=== PATIENT | female | born 1935 | race Caucasian/White ===

== ENCOUNTER 2021-10-07 17:28 | Inpatient (IN) ==
[2021-10-07] MEDS ORDERED: Acetaminophen 325 MG TABLET PO PRN (18:07)
[2021-10-07] MEDS ORDERED: Ondansetron 4 MG/2 ML VIAL IVP PRN (18:07)
[2021-10-07] MEDS ORDERED: Naloxone 0.4 MG/ML INJ IVP PRN (18:07)
[2021-10-07] MEDS ORDERED: Diclofenac Sodium [Voltaren] 100 GM Gel..Gram. TP PRN (21:54)
[2021-10-08] MEDS ORDERED: *HR* Enoxaparin 40 MG/0.4 ML SYRINGE SQ SCH (06:00)
[2021-10-08 07:18] LABS: Hematocrit 29.2 % (35.3-44.9); Hemoglobin 9.6 g/dL (11.5-15.4); Mean Corpuscular HGB Conc 32.9 g/dL (31.6-35.5); Mean Corpuscular Hemoglobin 29.4 pg (28.0-33.3); Mean Corpuscular Volume 89.3 fL (83.0-100.0); Mean Platelet Volume 8.5 fL (9.4-12.4); Platelet Count 239 K/mcL (140-400); Red Blood Count 3.27 M/mcL (3.82-4.97); Red Cell Distribution Width 13.5 % (11.5-14.5); White Blood Count 5.3 K/mcL (4.3-11.1)
[2021-10-08 07:46] LABS: Calcium 9.4 mg/dL (8.6-10.3); Potassium 3.9 mEq/L (3.5-5.1)
[2021-10-08] MEDS ORDERED: [UNRECOGNIZED DRUG - OTHER] SL SCH (09:00)
[2021-10-08] MEDS ORDERED: CYANOCOBALAMIN SL SCH (09:00)
[2021-10-08] MEDS: Cholecalciferol (D-3) 1,000 UNIT (25MCG) TABLET PO SCH (10:27)
[2021-10-08] MEDS: amLODIPine 5 MG TABLET PO SCH (10:27)
[2021-10-08] MEDS: Ezetimibe [Zetia] 10 MG Tablet PO SCH (10:31)
[2021-10-08] MEDS ORDERED: *HR* HYDROcodone/Acet 5/325 mg TABLET PO PRN (11:51)
[2021-10-09] MEDS: *HR* Heparin 5,000 UNIT/ML VIAL SQ SCH ×2 (05:55→18:26)
[2021-10-09] MEDS: Cholecalciferol (D-3) 1,000 UNIT (25MCG) TABLET PO SCH (08:55)
[2021-10-09] MEDS: amLODIPine 5 MG TABLET PO SCH (08:55)
[2021-10-09] MEDS: Ezetimibe [Zetia] 10 MG Tablet PO SCH (08:55)
[2021-10-10] MEDS: *HR* Heparin 5,000 UNIT/ML VIAL SQ SCH (05:56)
[2021-10-10 06:23] VITALS: BP 175/65; PULSE 62; RESP 19; TEMP 98.1; O2SAT 98
[2021-10-10] MEDS: Ezetimibe [Zetia] 10 MG Tablet PO SCH (08:12)
[2021-10-10] MEDS: amLODIPine 5 MG TABLET PO SCH (08:12)
[2021-10-10] MEDS: Cholecalciferol (D-3) 1,000 UNIT (25MCG) TABLET PO SCH (08:12)
== END 2021-10-10 14:37 | disposition other institution (70) | DRG 554 ==
LOC: PREOBSVTOIN 18:19 → INPPIK 21:45
PROVIDERS: ADMIT Family Medicine; ATTEND Family Medicine

== ENCOUNTER 2021-10-09 10:52 | Inpatient (IN) ==
[2021-10-10] MEDS: *HR* Heparin 5,000 UNIT/ML VIAL SQ SCH (18:13)
[2021-10-11] MEDS ORDERED: *HR* HYDROcodone/Acet 5/325 mg TABLET PO PRN (04:15)
[2021-10-11] MEDS: *HR* Heparin 5,000 UNIT/ML VIAL SQ SCH ×2 (05:47→16:32)
[2021-10-11 06:14] LABS: Basophils % 0.5 %; Eosinophils # 0.2 K/mcL (0.0-0.6); Eosinophils % 3.5 %; Hematocrit 30.8 % (35.3-44.9); Hemoglobin 9.9 g/dL (11.5-15.4); Immature Granulocytes % 0.3 % (0-4); Lymphocytes # 1.9 K/mcL (0.6-4.6); Lymphocytes % 31.2 %; Mean Corpuscular HGB Conc 32.1 g/dL (31.6-35.5); Mean Corpuscular Hemoglobin 29.2 pg (28.0-33.3); Mean Corpuscular Volume 90.9 fL (83.0-100.0); Mean Platelet Volume 9.4 fL (9.4-12.4); Monocytes # 0.5 K/mcL (0.0-1.3); Monocytes % 8.8 %; Neutrophils # 3.4 K/mcL (1.6-8.9); Platelet Count 257 K/mcL (140-400); Red Blood Count 3.39 M/mcL (3.82-4.97); Red Cell Distribution Width 13.6 % (11.5-14.5); Segmented Neutrophils % 55.7 %
[2021-10-11 06:39] LABS: Calcium 9.5 mg/dL (8.6-10.3); Potassium 4.3 mEq/L (3.5-5.1)
[2021-10-11] MEDS: amLODIPine 5 MG TABLET PO SCH (08:18)
[2021-10-11] MEDS: Cholecalciferol (D-3) 1,000 UNIT (25MCG) TABLET PO SCH (08:18)
[2021-10-12] MEDS: *HR* Heparin 5,000 UNIT/ML VIAL SQ SCH ×2 (06:28→20:04)
[2021-10-12] MEDS: Cholecalciferol (D-3) 1,000 UNIT (25MCG) TABLET PO SCH (07:34)
[2021-10-12] MEDS: amLODIPine 5 MG TABLET PO SCH (07:34)
[2021-10-13] MEDS: *HR* Heparin 5,000 UNIT/ML VIAL SQ SCH ×2 (06:13→18:31)
[2021-10-13] MEDS: amLODIPine 5 MG TABLET PO SCH (09:02)
[2021-10-13] MEDS: Cholecalciferol (D-3) 1,000 UNIT (25MCG) TABLET PO SCH (09:02)
[2021-10-14 06:25] VITALS: BP 136/57; RESP 16; TEMP 98.3
[2021-10-14] MEDS: *HR* Heparin 5,000 UNIT/ML VIAL SQ SCH (06:26)
[2021-10-14] MEDS: amLODIPine 5 MG TABLET PO SCH (09:59)
[2021-10-14] MEDS: Cholecalciferol (D-3) 1,000 UNIT (25MCG) TABLET PO SCH (09:59)
[2021-10-14 12:00] VITALS: PULSE 65; O2SAT 96
== END 2021-10-14 16:30 | disposition home or self-care (01) | DRG 554 ==
LOC: INPPIK 10-10 14:46
PROVIDERS: ADMIT Internal Medicine; ATTEND Internal Medicine